=== PATIENT | female | born 1965 | race Caucasian/White ===

== ENCOUNTER 2019-03-23 10:23 | Day surgery (SDC) | payer MEDICAID ==
[~2019-03-23] VITALS: Ht 172.7 cm; Wt 93.0 kg
[2019-03-23] MEDS ORDERED: MORPHINE SULFATE/PF 1MG/ML 10ML AMP ONE (11:32)
[2019-03-23] MEDS ORDERED: EPINEPHRINE 1:1000 1 MG/ML AMP ONE (11:33)
[2019-03-23] MEDS ORDERED: BUPIVACAINE HCL/EPINEPHRINE 0.25%/0.0005 50ML ONE ×2 (11:33→16:29)
[2019-03-23] MEDS ORDERED: NEOSTIGMINE METHYLSULFATE 1MG/ML 10 ML VIAL ONE (15:31)
[2019-03-23] MEDS ORDERED: FENTANYL CITRATE/PF 50MCG/ML 2ML VIAL ONE ×2 (15:31→16:05)
[2019-03-23] MEDS ORDERED: MIDAZOLAM HCL 2 MG/2 ML VIAL ONE (15:32)
[2019-03-23] MEDS ORDERED: GLYCOPYRROLATE 0.2 MG/ML 2ML VIAL ONE (15:32)
[2019-03-23] MEDS ORDERED: ROCURONIUM BROMIDE 10MG/ML VIAL 5ML IV ONE (15:32)
[2019-03-23] MEDS ORDERED: PROPOFOL 200MG/20ML VIAL IV ONE (15:32)
[2019-03-23] MEDS ORDERED: LIDOCAINE HCL/PF 1% 10 MG/ML 5ML VIAL ONE (15:33)
[2019-03-23] MEDS ORDERED: CEFAZOLIN SODIUM 1000MG/VIAL ONE (15:33)
[2019-03-23] MEDS ORDERED: METOCLOPRAMIDE HCL 10MG/2ML VIAL ONE (15:34)
[2019-03-23] MEDS ORDERED: SODIUM CHLORIDE 0.9% 10ML VIAL ONE (15:34)
[2019-03-23] MEDS ORDERED: PHENYLEPHRINE HCL 10 MG/ML 1ML (IV VIAL) IV ONE (15:34)
[2019-03-23] MEDS ORDERED: ONDANSETRON HCL 4MG/2ML INJ ONE (15:34)
[2019-03-23] MEDS ORDERED: EPHEDRINE SULFATE 50MG/ML VIAL ONE (15:34)
[2019-03-23] MEDS ORDERED: SUCCINYLCHOLINE CHLORIDE 200MG/10ML IV ONE (15:34)
[2019-03-23] MEDS ORDERED: DEXAMETHASONE 4MG/ML 1ML VIAL ONE ×3 (16:27→16:31)
[2019-03-23] MEDS ORDERED: ACET-2708 PO (16:54)
[2019-03-23] MEDS ORDERED: IBUP-2030 PO (16:54)
[2019-03-23] MEDS ORDERED: ALBU18HF2 IH (16:54)
[2019-03-23] MEDS ORDERED: ALBU90AE IH (16:54)
[2019-03-23] MEDS ORDERED: KETOROLAC 30MG/ML VIAL IV NR (17:00)
[2019-03-23] MEDS ORDERED: LACTATED RINGERS 1,000 ML IV SCH (17:15)
[2019-03-23] MEDS ORDERED: ACETAMINOPHEN WITH CODEINE 300/30MG TABLET PO PRN (17:30)
[2019-03-23] MEDS ORDERED: DIPHENHYDRAMINE 25MG CAPSULE PO PRN (17:30)
[2019-03-23 18:04] VITALS: BP 142/71
== END 2019-03-23 19:05 | disposition home or self-care (01) ==
LOC: OR 10:23
PROVIDERS: ATTEND Orthopaedic Surgery
DX: S83.241A Other tear of medial meniscus, current injury, right knee, initial encounter (principal); S83.281A Other tear of lateral meniscus, current injury, right knee, initial encounter; M17.11 Unilateral primary osteoarthritis, right knee; J45.909 Unspecified asthma, uncomplicated; Z79.1 Long term (current) use of non-steroidal anti-inflammatories (NSAID); Z79.899 Other long term (current) drug therapy; Z88.2 Allergy status to sulfonamides; Z88.6 Allergy status to analgesic agent; Z88.8 Allergy status to other drugs, medicaments and biological substances; Z90.710 Acquired absence of both cervix and uterus; X58.XXXA Exposure to other specified factors, initial encounter; Y93.89 Activity, other specified; Y92.89 Other specified places as the place of occurrence of the external cause; Y99.8 Other external cause status
CPT/HCPCS: 29876; 29880; 88304; 88311; J0171; J0330; J0690; J1100; J1885; J2250; J2370; J2405; J2704; J2710; J2765; J3010; J3490; J2274